=== PATIENT | male | born 1945 | race Caucasian/White ===

== ENCOUNTER 2023-04-14 22:04 | Inpatient (IN) | payer MEDICARE, MEDICAID ==
[2023-04-14] MEDS ORDERED: Multivitamins, Adult 10 ML, Thiamine HCl 100 MG, Folic Acid 1 MG in Dextrose 5 %-0.45 %... IV SCH (22:45)
[2023-04-14 22:55] LABS: #Eosinphils 0.1 thou/uL (0.0-0.7); #Monocytes 0.6 thou/uL (0.11-0.59); #Neutrophils 5.6 thou/uL (1.40-6.50); %Basophils 0.5 % (0.0-1.0); %Eosinophils 1.6 % (0.0-10.0); %Lymphocytes 14.9 % (21.0-51.0); %Monocytes 7.6 % (0.0-10.0); %Neutrophils 74.7 % (42.0-75.0); Hemoglobin 12.8 g/dL (14.0-18.0); Mean Corpuscular HGB CONC 32.7 g/dL (32.0-36.0); Mean Corpuscular Hemoglobin 30.3 pg (27.0-31.0); Mean Corpuscular Volume 92.7 fl (78.0-98.0); Mean Platelet Volume 9.7 fL (7.4-10.4); Platelet Count 248 10x3/uL (130-400); RBC Distribution Width 12.9 % (11.5-14.5); Red Blood Cell (RBC) Count 4.22 mill/uL (4.70-6.10); White Blood Cell (WBC) Count 7.5 10x3/uL (4.8-10.8)
[2023-04-14] MEDS ORDERED: Thiamine HCl 200 MG/2 ML VIAL SLOW IVP SCH (23:00)
[2023-04-14 23:04] LABS: ALT (SGPT) 12 U/L (8-55); AST (SGOT) 21 U/L (5-34); Albumin 3.8 g/dL (3.4-4.8); Alkaline Phosphatase 64 U/L (40-110); Anion Gap 13 mmol/L (10-20); BUN (Urea Nitrogen) 19 mg/dL (8.4-25.7); Bilirubin, Total 1.2 mg/dL (0.2-1.2); Calc. Creatinine Clearance 0 mL/min (70-130); Calcium 9.1 mg/dL (7.8-10.44); Carbon Dioxide 24 mmol/L (23-31); Chloride 106 mmol/L (98-107); Estimated GFR 57; Globulin 2.5 g/dL (2.4-3.5); Glucose 153 mg/dL (83-110); Potassium 3.6 mmol/L (3.5-5.1); Protein, Total 6.3 g/dL (5.8-8.1); Sodium 139 mmol/L (136-145)
[2023-04-14 23:04] LABS: Acetaminophen Less than 10 mcg/mL (10.0-30.0); Alcohol Less than 10.0 mg/dL (Less than 10); CK (CPK) 180 U/L (30-200); Lipase 35 U/L (8-78); Salicylate Less than 8.0 mg/dL (15.0-30.0)
[2023-04-14] MEDS ORDERED: Electrolyte Replacement Protocol 1 EACH FS SCH (23:45)
[2023-04-14] MEDS ORDERED: Ondansetron PF 4 MG/2 ML Vial IVP PRN (23:50)
[2023-04-14] MEDS ORDERED: Lorazepam 2 MG/ML VIAL IM PRN (23:51)
[2023-04-14] MEDS ORDERED: Lorazepam 1 MG TAB PO PRN (23:51)
[2023-04-14] MEDS ORDERED: Ondansetron ODT 4 MG TAB PO PRN (23:51)
[2023-04-15 00:28] LABS: Bilirubin, Direct 0.5 mg/dL (0.1-0.3); Phosphorus 2.3 mg/dL (2.3-4.7)
[2023-04-15] MEDS ORDERED: Lorazepam 1 MG TAB ONE ×3 (02:42→15:00)
[2023-04-15] MEDS: Lorazepam 1 MG TAB PO SCH ×3 (02:45→15:04)
[2023-04-15 04:41] LABS: #Basophils 0.1 thou/uL (0.0-0.2); #Eosinphils 0.2 thou/uL (0.0-0.7); #Monocytes 0.6 thou/uL (0.11-0.59); #Neutrophils 3.9 thou/uL (1.40-6.50); %Basophils 0.8 % (0.0-1.0); %Eosinophils 3.4 % (0.0-10.0); %Lymphocytes 20.9 % (21.0-51.0); %Monocytes 9.2 % (0.0-10.0); %Neutrophils 65.5 % (42.0-75.0); Hemoglobin 12.2 g/dL (14.0-18.0); Mean Corpuscular HGB CONC 33.1 g/dL (32.0-36.0); Mean Corpuscular Hemoglobin 30.3 pg (27.0-31.0); Mean Corpuscular Volume 91.6 fl (78.0-98.0); Mean Platelet Volume 9.5 fL (7.4-10.4); Platelet Count 213 10x3/uL (130-400); RBC Distribution Width 12.8 % (11.5-14.5); Red Blood Cell (RBC) Count 4.03 mill/uL (4.70-6.10)
[2023-04-15 05:02] LABS: ALT (SGPT) 10 U/L (8-55); AST (SGOT) 18 U/L (5-34); Albumin 3.3 g/dL (3.4-4.8); Alkaline Phosphatase 56 U/L (40-110); Anion Gap 12 mmol/L (10-20); BUN (Urea Nitrogen) 17 mg/dL (8.4-25.7); Bilirubin, Total 0.8 mg/dL (0.2-1.2); Calc. Creatinine Clearance 0 mL/min (70-130); Calcium 8.2 mg/dL (7.8-10.44); Carbon Dioxide 23 mmol/L (23-31); Chloride 110 mmol/L (98-107); Estimated GFR 83; Globulin 2.2 g/dL (2.4-3.5); Glucose 108 mg/dL (83-110); Protein, Total 5.5 g/dL (5.8-8.1); Sodium 142 mmol/L (136-145)
[2023-04-15 07:51] LABS: Bacteria/HPF None Seen HPF (None Seen); Bilirubin Negative (Negative); Blood, Urine 1+ (Negative); CAUTI Indications for Culture Alt mental st,lethar; Clarity Clear (Clear); Glucose, Urine (Dipstick) Normal (Negative); Ketone, Urine Negative (Negative); Leukocyte 250 Leu/uL (Negative); Nitrite Negative (Negative); Protein, Urine (Dipstick) 20 mg/dL (Neg-Trace); Specific Gravity, Urine 1.025 (1.002-1.036); Squamous Epithelial None Seen HPF (0-3); Urobilinogen Normal mg/dL (Less than 2); pH, Urine 5.5 (5.0-9.0)
[2023-04-15 07:52] LABS: Urine Culture Reflex Yes Yes
[2023-04-15 07:56] LABS: Amphetamine Not Detected (NotDetected); Barbiturates Screen Not Detected (NotDetected); Benzodiazepine Screen Not Detected (NotDetected); Cocaine Metabolite Screen Not Detected (NotDetected); Methadone Not Detected (NotDetected); Methamphetamine Not Detected (NotDetected); Opiate Screen Not Detected (NotDetected); Oxycodone Screen Not Detected (NotDetected); Phencyclidine (PCP) Not Detected (NotDetected); THC/Cannabinoid Screen Not Detected (NotDetected); Tricyclic Screen Not Detected (NotDetected)
[2023-04-15] MEDS ORDERED: Potassium Chloride 20 MEQ TAB PO SCH (08:00)
[2023-04-15] MEDS ORDERED: Magnesium 2 GM/50 ML(in water) 2 GM in Premix Bag 1 BAG IVPB SCH (08:00)
[2023-04-15] MEDS ORDERED: Potassium Chloride 20 MEQ TAB ONE (08:58)
[2023-04-15] MEDS ORDERED: Magnesium 2 GM/50 ML BAG (IN WATER) ONE (08:58)
[2023-04-15] MEDS ORDERED: Famotidine/PF 20 mg/2ml Vial ONE (08:58)
[2023-04-15] MEDS ORDERED: Folic Acid 1 MG TAB ONE (08:58)
[2023-04-15] MEDS: Sodium Chloride 0.9% 1,000 ML IV SCH ×3 (09:04→16:17)
[2023-04-15] MEDS: Famotidine/PF 20 mg/2ml Vial SLOW IVP SCH ×2 (09:08→20:20)
[2023-04-15] MEDS: Amlodipine 10 MG TAB PO SCH (09:11)
[2023-04-15] MEDS: Folic Acid 1 MG TAB PO SCH (09:12)
[2023-04-15] MEDS: Multivit, Therapeutic 1 TAB PO SCH (10:04)
[2023-04-15] MEDS ORDERED: cefTRIAXone (ROCEPHIN) 1 GM VIAL ONE (10:12)
[2023-04-15] MEDS: cefTRIAXone\\ROCEPHIN 1 GM in Sodium Chloride 0.9% 100 ML IVPB SCH (10:26)
[2023-04-15] MEDS ORDERED: Sodium Chloride 0.9% 1,000 ML IV SCH (11:00)
[2023-04-15 16:43] VITALS: BMI 26.6
[2023-04-15 18:15] LABS: Amphetamine Not Detected (NotDetected); Barbiturates Screen Not Detected (NotDetected); Benzodiazepine Screen Detected (NotDetected); Cocaine Metabolite Screen Not Detected (NotDetected); Methadone Not Detected (NotDetected); Methamphetamine Not Detected (NotDetected); Opiate Screen Not Detected (NotDetected); Oxycodone Screen Not Detected (NotDetected); Phencyclidine (PCP) Not Detected (NotDetected); THC/Cannabinoid Screen Not Detected (NotDetected); Tricyclic Screen Not Detected (NotDetected)
[2023-04-15] MEDS ORDERED: OLANZapine 10 MG VIAL IM SCH (19:00)
[2023-04-15] MEDS ORDERED: Sterile Water 10 ML VIAL FS PRN (19:02)
[2023-04-15] MEDS: Tamsulosin HCl 0.4 MG CAP PO SCH (20:19)
[2023-04-15] MEDS: Thiamine HCl 200 MG/2 ML VIAL SLOW IVP SCH (20:19)
[2023-04-15] MEDS ORDERED: Haloperidol Lactate 5 MG/ML VIAL IM SCH (22:30)
[2023-04-15] MEDS ORDERED: Lorazepam 1 MG TAB PO PRN (23:51)
[2023-04-16] MEDS: Lorazepam 1 MG TAB PO SCH ×2 (00:19→02:18)
[2023-04-16] MEDS ORDERED: Lorazepam 2 MG/ML VIAL SLOW IVP SCH ×2 (01:15→06:00)
[2023-04-16] MEDS: Sodium Chloride 0.9% 1,000 ML IV SCH ×3 (01:28→20:54)
[2023-04-16 05:10] LABS: #Basophils 0.1 thou/uL (0.0-0.2); #Eosinphils 0.2 thou/uL (0.0-0.7); #Monocytes 0.8 thou/uL (0.11-0.59); #Neutrophils 6.3 thou/uL (1.40-6.50); %Basophils 0.6 % (0.0-1.0); %Eosinophils 2.8 % (0.0-10.0); %Lymphocytes 14.4 % (21.0-51.0); %Monocytes 8.8 % (0.0-10.0); %Neutrophils 72.8 % (42.0-75.0); Hemoglobin 12.9 g/dL (14.0-18.0); Mean Corpuscular HGB CONC 32.7 g/dL (32.0-36.0); Mean Corpuscular Hemoglobin 30.1 pg (27.0-31.0); Mean Corpuscular Volume 91.8 fl (78.0-98.0); Mean Platelet Volume 9.7 fL (7.4-10.4); Platelet Count 211 10x3/uL (130-400); RBC Distribution Width 12.6 % (11.5-14.5); Red Blood Cell (RBC) Count 4.29 mill/uL (4.70-6.10); White Blood Cell (WBC) Count 8.7 10x3/uL (4.8-10.8)
[2023-04-16 05:32] LABS: Anion Gap 11 mmol/L (10-20); BUN (Urea Nitrogen) 12 mg/dL (8.4-25.7); Calc. Creatinine Clearance 80 mL/min (70-130); Calcium 8.2 mg/dL (7.8-10.44); Carbon Dioxide 22 mmol/L (23-31); Chloride 108 mmol/L (98-107); Estimated GFR 86; Glucose 102 mg/dL (83-110); Potassium 3.1 mmol/L (3.5-5.1); Sodium 138 mmol/L (136-145)
[2023-04-16] MEDS: Potassium Chloride 20 MEQ in Premix Bag 1 BAG IVPB SCH ×2 (07:39→10:33)
[2023-04-16] MEDS: Famotidine/PF 20 mg/2ml Vial SLOW IVP SCH ×3 (07:39→20:39)
[2023-04-16] MEDS ORDERED: Potassium Chloride 20 MEQ TAB PO SCH (08:00)
[2023-04-16] MEDS: Folic Acid 1 MG TAB PO SCH (08:50)
[2023-04-16] MEDS: Amlodipine 10 MG TAB PO SCH (08:50)
[2023-04-16] MEDS: Multivit, Therapeutic 1 TAB PO SCH (08:50)
[2023-04-16] MEDS ORDERED: Magnesium 2 GM/50 ML(in water) 2 GM in Premix Bag 1 BAG IVPB SCH (09:30)
[2023-04-16] MEDS: cefTRIAXone\\ROCEPHIN 1 GM in Sodium Chloride 0.9% 100 ML IVPB SCH (09:55)
[2023-04-16] MEDS: Tamsulosin HCl 0.4 MG CAP PO SCH (20:39)
[2023-04-16] MEDS: Thiamine HCl 200 MG/2 ML VIAL SLOW IVP SCH (20:39)
[2023-04-16] MEDS: Lorazepam 0.5 MG TAB PO SCH (23:12)
[2023-04-16] MEDS ORDERED: Lorazepam 1 MG TAB PO PRN (23:51)
[2023-04-16] MEDS ORDERED: hydrALAZINE 20 MG/ML VIAL SLOW IVP PRN (23:55)
[2023-04-17] MEDS: Lorazepam 0.5 MG TAB PO SCH ×3 (07:18→17:16)
[2023-04-17] MEDS: Famotidine/PF 20 mg/2ml Vial SLOW IVP SCH ×3 (08:31→22:16)
[2023-04-17] MEDS: cefTRIAXone\\ROCEPHIN 1 GM in Sodium Chloride 0.9% 100 ML IVPB SCH (08:37)
[2023-04-17] MEDS: Multivit, Therapeutic 1 TAB PO SCH ×2 (09:46→09:56)
[2023-04-17] MEDS: Amlodipine 10 MG TAB PO SCH (09:55)
[2023-04-17] MEDS: Folic Acid 1 MG TAB PO SCH (09:56)
[2023-04-17 15:01] LABS: Hemoglobin 13.1 g/dL (14.0-18.0); Mean Corpuscular HGB CONC 33.2 g/dL (32.0-36.0); Mean Corpuscular Hemoglobin 30.3 pg (27.0-31.0); Mean Corpuscular Volume 91.2 fl (78.0-98.0); Mean Platelet Volume 9.7 fL (7.4-10.4); Platelet Count 226 10x3/uL (130-400); RBC Distribution Width 12.7 % (11.5-14.5); Red Blood Cell (RBC) Count 4.32 mill/uL (4.70-6.10)
[2023-04-17 15:21] LABS: Anion Gap 10 mmol/L (10-20); BUN (Urea Nitrogen) 10 mg/dL (8.4-25.7); Calc. Creatinine Clearance 85 mL/min (70-130); Calcium 8.6 mg/dL (7.8-10.44); Carbon Dioxide 21 mmol/L (23-31); Chloride 111 mmol/L (98-107); Estimated GFR 89; Glucose 95 mg/dL (83-110); Magnesium 1.9 mg/dL (1.6-2.6); Potassium 3.4 mmol/L (3.5-5.1); Sodium 139 mmol/L (136-145)
[2023-04-17] MEDS: Sodium Chloride 0.9% 1,000 ML IV SCH (15:59)
[2023-04-17] MEDS ORDERED: Potassium Chloride 20 MEQ TAB PO SCH (16:30)
[2023-04-17] MEDS ORDERED: Lorazepam 2 MG/ML VIAL SLOW IVP SCH (18:45)
[2023-04-17] MEDS ORDERED: Magnesium 2 GM/50 ML(in water) 2 GM in Premix Bag 1 BAG IVPB SCH (22:00)
[2023-04-17] MEDS: Thiamine 100 MG TAB PO SCH ×2 (22:15→22:16)
[2023-04-17] MEDS: Amoxicillin/Potassium Clav 875 MG TAB PO SCH ×2 (22:15→22:16)
[2023-04-17] MEDS: Tamsulosin HCl 0.4 MG CAP PO SCH ×2 (22:15→22:16)
[2023-04-18] MEDS: Lorazepam 0.5 MG TAB PO SCH (01:06)
[2023-04-18] MEDS: Famotidine/PF 20 mg/2ml Vial SLOW IVP SCH ×2 (09:35→21:06)
[2023-04-18] MEDS: Amlodipine 10 MG TAB PO SCH (09:36)
[2023-04-18] MEDS: Multivit, Therapeutic 1 TAB PO SCH (09:36)
[2023-04-18] MEDS: Folic Acid 1 MG TAB PO SCH (09:37)
[2023-04-18] MEDS: Amoxicillin/Potassium Clav 875 MG TAB PO SCH ×2 (09:37→21:06)
[2023-04-18] MEDS: Sodium Chloride 0.9% 1,000 ML IV SCH (13:51)
[2023-04-18] MEDS: Lisinopril 10 MG TAB PO SCH (21:06)
[2023-04-18] MEDS: Tamsulosin HCl 0.4 MG CAP PO SCH (21:06)
[2023-04-18] MEDS: Thiamine 100 MG TAB PO SCH (21:06)
[2023-04-19 05:22] LABS: Anion Gap 11 mmol/L (10-20); BUN (Urea Nitrogen) 11 mg/dL (8.4-25.7); Calc. Creatinine Clearance 75 mL/min (70-130); Calcium 8.6 mg/dL (7.8-10.44); Carbon Dioxide 23 mmol/L (23-31); Chloride 106 mmol/L (98-107); Estimated GFR 80; Glucose 103 mg/dL (83-110); Magnesium 1.9 mg/dL (1.6-2.6); Potassium 3.6 mmol/L (3.5-5.1); Sodium 136 mmol/L (136-145)
[2023-04-19] MEDS ORDERED: Magnesium 2 GM/50 ML(in water) 2 GM in Premix Bag 1 BAG IVPB SCH (08:00)
[2023-04-19] MEDS: Amoxicillin/Potassium Clav 875 MG TAB PO SCH ×2 (09:46→21:01)
[2023-04-19] MEDS: Multivit, Therapeutic 1 TAB PO SCH (09:47)
[2023-04-19] MEDS: Folic Acid 1 MG TAB PO SCH (09:47)
[2023-04-19] MEDS: Amlodipine 10 MG TAB PO SCH (09:47)
[2023-04-19] MEDS: Famotidine/PF 20 mg/2ml Vial SLOW IVP SCH ×2 (09:53→21:01)
[2023-04-19] MEDS: Sodium Chloride 0.9% 1,000 ML IV SCH (12:05)
[2023-04-19] MEDS: Tamsulosin HCl 0.4 MG CAP PO SCH (21:01)
[2023-04-19] MEDS: Thiamine 100 MG TAB PO SCH (21:02)
[2023-04-19] MEDS: Lisinopril 10 MG TAB PO SCH (21:02)
[2023-04-20] MEDS ORDERED: OLANZapine 10 MG VIAL IM SCH (04:45)
[2023-04-20] MEDS: Lorazepam 2 MG/ML VIAL SLOW IVP PRN (05:06)
[2023-04-20] MEDS: Multivit, Therapeutic 1 TAB PO SCH (09:40)
[2023-04-20] MEDS: Folic Acid 1 MG TAB PO SCH (09:40)
[2023-04-20] MEDS: Amlodipine 10 MG TAB PO SCH (09:40)
[2023-04-20] MEDS: Famotidine/PF 20 mg/2ml Vial SLOW IVP SCH ×2 (09:41→20:55)
[2023-04-20] MEDS: Lorazepam 0.5 MG TAB PO PRN (15:50)
[2023-04-20] MEDS: Tamsulosin HCl 0.4 MG CAP PO SCH (20:56)
[2023-04-20] MEDS: Thiamine 100 MG TAB PO SCH (20:56)
[2023-04-20] MEDS: Lisinopril 10 MG TAB PO SCH (20:56)
[2023-04-21] MEDS: Multivit, Therapeutic 1 TAB PO SCH (09:26)
[2023-04-21] MEDS: Amlodipine 10 MG TAB PO SCH (09:26)
[2023-04-21] MEDS: Famotidine/PF 20 mg/2ml Vial SLOW IVP SCH ×2 (09:26→20:02)
[2023-04-21] MEDS: Folic Acid 1 MG TAB PO SCH (09:26)
[2023-04-21] MEDS: Thiamine 100 MG TAB PO SCH (20:02)
[2023-04-21] MEDS: Lisinopril 10 MG TAB PO SCH (20:02)
[2023-04-21] MEDS: Lorazepam 2 MG/ML VIAL SLOW IVP PRN (20:03)
[2023-04-21] MEDS: Tamsulosin HCl 0.4 MG CAP PO SCH (20:04)
[2023-04-22 04:50] LABS: #Eosinphils 0.3 thou/uL (0.0-0.7); #Monocytes 0.6 thou/uL (0.11-0.59); #Neutrophils 3.2 thou/uL (1.40-6.50); %Basophils 0.7 % (0.0-1.0); %Eosinophils 5.2 % (0.0-10.0); %Lymphocytes 25.8 % (21.0-51.0); %Monocytes 10.8 % (0.0-10.0); Hemoglobin 13.5 g/dL (14.0-18.0); Mean Corpuscular HGB CONC 33.7 g/dL (32.0-36.0); Mean Corpuscular Hemoglobin 30.8 pg (27.0-31.0); Mean Corpuscular Volume 91.6 fl (78.0-98.0); Mean Platelet Volume 9.7 fL (7.4-10.4); Platelet Count 303 10x3/uL (130-400); RBC Distribution Width 12.7 % (11.5-14.5); Red Blood Cell (RBC) Count 4.38 mill/uL (4.70-6.10); White Blood Cell (WBC) Count 5.6 10x3/uL (4.8-10.8)
[2023-04-22 05:16] LABS: ALT (SGPT) 24 U/L (8-55); AST (SGOT) 26 U/L (5-34); Albumin 3.7 g/dL (3.4-4.8); Alkaline Phosphatase 56 U/L (40-110); Anion Gap 12 mmol/L (10-20); BUN (Urea Nitrogen) 23 mg/dL (8.4-25.7); Bilirubin, Total 0.3 mg/dL (0.2-1.2); Calc. Creatinine Clearance 59 mL/min (70-130); Calcium 9.3 mg/dL (7.8-10.44); Carbon Dioxide 25 mmol/L (23-31); Chloride 106 mmol/L (98-107); Estimated GFR 60; Globulin 2.7 g/dL (2.4-3.5); Glucose 96 mg/dL (83-110); Potassium 4.4 mmol/L (3.5-5.1); Protein, Total 6.4 g/dL (5.8-8.1); Sodium 139 mmol/L (136-145)
[2023-04-22] MEDS: Multivit, Therapeutic 1 TAB PO SCH (08:28)
[2023-04-22] MEDS: Folic Acid 1 MG TAB PO SCH (08:28)
[2023-04-22] MEDS: Famotidine/PF 20 mg/2ml Vial SLOW IVP SCH ×2 (08:29→20:11)
[2023-04-22] MEDS: Amlodipine 10 MG TAB PO SCH (08:29)
[2023-04-22] MEDS: Acetaminophen 325 MG TAB PO PRN (15:51)
[2023-04-22] MEDS: Lisinopril 10 MG TAB PO SCH (20:11)
[2023-04-22] MEDS: Tamsulosin HCl 0.4 MG CAP PO SCH (20:11)
[2023-04-22] MEDS: Thiamine 100 MG TAB PO SCH (20:11)
[2023-04-23] MEDS: Folic Acid 1 MG TAB PO SCH (09:02)
[2023-04-23] MEDS: Multivit, Therapeutic 1 TAB PO SCH (09:02)
[2023-04-23] MEDS: Famotidine/PF 20 mg/2ml Vial SLOW IVP SCH ×2 (09:02→20:57)
[2023-04-23] MEDS: Amlodipine 10 MG TAB PO SCH (09:11)
[2023-04-23] MEDS: Acetaminophen 325 MG TAB PO PRN (10:08)
[2023-04-23] MEDS ORDERED: Ketorolac Tromethamine 30 MG/ML VIAL IVP SCH (14:15)
[2023-04-23] MEDS: Lisinopril 10 MG TAB PO SCH (20:57)
[2023-04-23] MEDS: Thiamine 100 MG TAB PO SCH (20:57)
[2023-04-23] MEDS: Tamsulosin HCl 0.4 MG CAP PO SCH (20:57)
[2023-04-24 07:39] LABS: Hemoglobin 12.4 g/dL (14.0-18.0); Mean Corpuscular HGB CONC 33.4 g/dL (32.0-36.0); Mean Corpuscular Hemoglobin 30.5 pg (27.0-31.0); Mean Corpuscular Volume 91.2 fl (78.0-98.0); Mean Platelet Volume 9.8 fL (7.4-10.4); Platelet Count 290 10x3/uL (130-400); RBC Distribution Width 12.5 % (11.5-14.5); Red Blood Cell (RBC) Count 4.07 mill/uL (4.70-6.10); White Blood Cell (WBC) Count 6.9 10x3/uL (4.8-10.8)
[2023-04-24 08:02] LABS: ALT (SGPT) 16 U/L (8-55); AST (SGOT) 16 U/L (5-34); Albumin 3.5 g/dL (3.4-4.8); Alkaline Phosphatase 51 U/L (40-110); Anion Gap 11 mmol/L (10-20); BUN (Urea Nitrogen) 32 mg/dL (8.4-25.7); Bilirubin, Total 0.4 mg/dL (0.2-1.2); Calc. Creatinine Clearance 61 mL/min (70-130); Calcium 8.9 mg/dL (7.8-10.44); Carbon Dioxide 25 mmol/L (23-31); Chloride 106 mmol/L (98-107); Estimated GFR 63; Globulin 2.6 g/dL (2.4-3.5); Glucose 93 mg/dL (83-110); Potassium 4.2 mmol/L (3.5-5.1); Protein, Total 6.1 g/dL (5.8-8.1); Sodium 138 mmol/L (136-145)
[2023-04-24] MEDS: Famotidine/PF 20 mg/2ml Vial SLOW IVP SCH ×2 (09:31→20:10)
[2023-04-24] MEDS: Multivit, Therapeutic 1 TAB PO SCH (09:32)
[2023-04-24] MEDS: Folic Acid 1 MG TAB PO SCH (09:32)
[2023-04-24] MEDS: Amlodipine 10 MG TAB PO SCH (10:37)
[2023-04-24] MEDS: Lisinopril 10 MG TAB PO SCH (20:10)
[2023-04-24] MEDS: Thiamine 100 MG TAB PO SCH (20:10)
[2023-04-24] MEDS: Acetaminophen 325 MG TAB PO PRN (20:10)
[2023-04-24] MEDS: Tamsulosin HCl 0.4 MG CAP PO SCH (20:10)
[2023-04-25] MEDS: Famotidine/PF 20 mg/2ml Vial SLOW IVP SCH ×2 (09:06→20:15)
[2023-04-25] MEDS: Folic Acid 1 MG TAB PO SCH (09:06)
[2023-04-25] MEDS: Amlodipine 10 MG TAB PO SCH (09:06)
[2023-04-25] MEDS: Multivit, Therapeutic 1 TAB PO SCH (09:06)
[2023-04-25] MEDS: Lisinopril 10 MG TAB PO SCH (20:15)
[2023-04-25] MEDS: Thiamine 100 MG TAB PO SCH (20:16)
[2023-04-25] MEDS: Tamsulosin HCl 0.4 MG CAP PO SCH (20:16)
[2023-04-25] MEDS: Acetaminophen 325 MG TAB PO PRN (20:18)
[2023-04-25] MEDS: Lorazepam 0.5 MG TAB PO PRN (20:18)
[2023-04-25] MEDS ORDERED: Lorazepam 2 MG/ML VIAL SLOW IVP SCH (22:00)
[2023-04-26] MEDS: Amlodipine 10 MG TAB PO SCH (09:35)
[2023-04-26] MEDS: Folic Acid 1 MG TAB PO SCH (09:36)
[2023-04-26] MEDS: Multivit, Therapeutic 1 TAB PO SCH (09:36)
[2023-04-26] MEDS: Famotidine/PF 20 mg/2ml Vial SLOW IVP SCH ×2 (09:37→21:44)
[2023-04-26 13:50] LABS: ALT (SGPT) 15 U/L (8-55); AST (SGOT) 16 U/L (5-34); Albumin 3.7 g/dL (3.4-4.8); Alkaline Phosphatase 54 U/L (40-110); Anion Gap 10 mmol/L (10-20); BUN (Urea Nitrogen) 24 mg/dL (8.4-25.7); Bilirubin, Total 0.3 mg/dL (0.2-1.2); Calc. Creatinine Clearance 69 mL/min (70-130); Calcium 9.3 mg/dL (7.8-10.44); Carbon Dioxide 27 mmol/L (23-31); Chloride 104 mmol/L (98-107); Estimated GFR 70; Globulin 2.8 g/dL (2.4-3.5); Glucose 99 mg/dL (83-110); Magnesium 2.2 mg/dL (1.6-2.6); Potassium 4.3 mmol/L (3.5-5.1); Protein, Total 6.5 g/dL (5.8-8.1); Sodium 137 mmol/L (136-145)
[2023-04-26] MEDS: Lisinopril 10 MG TAB PO SCH (21:44)
[2023-04-26] MEDS: Thiamine 100 MG TAB PO SCH (21:48)
[2023-04-26] MEDS: Tamsulosin HCl 0.4 MG CAP PO SCH (21:48)
[2023-04-27] MEDS: Famotidine/PF 20 mg/2ml Vial SLOW IVP SCH (09:45)
[2023-04-27] MEDS: Multivit, Therapeutic 1 TAB PO SCH (09:46)
[2023-04-27] MEDS: Amlodipine 10 MG TAB PO SCH (09:46)
[2023-04-27] MEDS: Folic Acid 1 MG TAB PO SCH (09:46)
[2023-04-27 12:15] VITALS: BP 112/67; TEMP 97.7
== END 2023-04-27 13:40 | disposition home or self-care (01) | DRG 896 ==
LOC: ERS 22:04 → ERHOLD 23:50 → OBSVTOIN 23:50 → NEURO 04-15 15:42 → T4-B 04-19 19:58 → 2NO 04-20 06:24
PROVIDERS: ADMIT Family Medicine; ATTEND Family Medicine
PROC: HZ2ZZZZ Detoxification Services for Substance Abuse Treatment (ICD-10-PCS; principal; 2023-04-14)
DX: F10.231 Alcohol dependence with withdrawal delirium (principal); G92.8 Other toxic encephalopathy; F10.221 Alcohol dependence with intoxication delirium; K40.90 Unilateral inguinal hernia, without obstruction or gangrene, not specified as recurrent; R00.1 Bradycardia, unspecified; E87.6 Hypokalemia; I10 Essential (primary) hypertension; Y90.0 Blood alcohol level of less than 20 mg/100 ml; M25.551 Pain in right hip; Z79.899 Other long term (current) drug therapy; Z78.1 Physical restraint status
CPT/HCPCS: 36415; 36416; 51701; 70450; 70551; 71045; 80048; 80053; 80306; 80307; 81001; 82140; 82248; 82550; 83690; 83735; 84100; 84443; 84484; 85025; 85027; 87086; 93005; 93010; 96361; 96365; 96366; 96367; J0360; J0696; J1630; J1650; J1885; J2060; J3411; J3475; J3480; J3490; J7042; J7050; S0028